=== PATIENT | female | born 2000 | race African-American/Black ===

== ENCOUNTER 2021-08-05 17:39 | Emergency (ER) | payer OTHER ==
[~2021-08-05] VITALS: Ht 170.2 cm; Wt 66.0 kg
[2021-08-05 18:38] VITALS: BP 103/63
[2021-08-05] MEDS ORDERED: ONDANSETRON 4MG ODT PO ONE (19:15)
[2021-08-05] MEDS ORDERED: MAGNESIUM/ALUMINUM HYDROXIDE/SIMETHICONE 30ML UDC PO ONE (19:15)
[2021-08-05] MEDS ORDERED: FAMO-135 PO (21:27)
== END 2021-08-05 21:40 | disposition home or self-care (01) ==
LOC: ER 17:39
DX: R11.2 Nausea with vomiting, unspecified (principal); R19.7 Diarrhea, unspecified; R10.13 Epigastric pain
CPT/HCPCS: 93005; 99283; Q0162

== ENCOUNTER 2021-08-22 10:48 | Emergency (ER) | payer OTHER ==
[~2021-08-22] VITALS: Ht 170.2 cm; Wt 73.0 kg
[~2021-08-22 10:48] MED LIST: FAMO-135 PO
[2021-08-22 11:07] VITALS: BP 108/50
[2021-08-22] MEDS ORDERED: KETOROLAC 60MG/2ML VIAL IM ONE (11:45)
[2021-08-22] MEDS ORDERED: NAPR-679 MT (13:52)
[2021-08-22] MEDS ORDERED: METH-773 MT (13:53)
== END 2021-08-22 14:48 | disposition home or self-care (01) ==
LOC: ER 10:48
DX: M54.50 Low back pain, unspecified (principal); M25.531 Pain in right wrist; W01.0XXA Fall on same level from slipping, tripping and stumbling without subsequent striking against object, initial encounter; Y93.89 Activity, other specified; Y92.218 Other school as the place of occurrence of the external cause; Y99.8 Other external cause status
CPT/HCPCS: 29125; 72131; 73100; 73120; 81025; 96372; 99284; J1885; A4565

== ENCOUNTER 2022-02-04 09:57 | Emergency (ER) | payer OTHER ==
[~2022-02-04] VITALS: Ht 170.2 cm; Wt 53.0 kg
[~2022-02-04 09:57] MED LIST changes: +METH-773 MT; +NAPR-679 MT
[2022-02-04 10:17] VITALS: BP 121/87
== END 2022-02-04 14:03 | disposition left against medical advice (07) ==
LOC: ER 09:57
DX: R00.2 Palpitations (principal)
CPT/HCPCS: 93005; 99283

== ENCOUNTER 2024-02-26 11:02 | Emergency (ER) | payer OTHER ==
[~2024-02-26] VITALS: Ht 167.6 cm; Wt 54.0 kg
[2024-02-26 11:15] VITALS: O2SAT 98
[2024-02-26] MEDS ORDERED: MAGNESIUM/ALUMINUM HYDROXIDE/SIMETHICONE 30ML UDC PO STA (11:24)
[2024-02-26] MEDS ORDERED: ONDANSETRON HCL 4MG/2ML INJ IV STA (11:24)
[2024-02-26 11:45] LABS: BASOPHILS % 0.5 % (0.0-2.0); EOSINOPHILS % 0.4 % (0.0-5.0); HEMATOCRIT. 40.5 % (36.0-48.0); HEMOGLOBIN. 13.4 g/dL (12.0-16.0); LYMPHOCYTES % 21.3 % (20.0-50.0); MEAN CORPUSCULAR HEMOGLOBIN 30.3 pg (28.0-32.0); MEAN CORPUSCULAR VOLUME 91.8 fL (81.0-99.0); MEAN PLATELET VOLUME 8.7 fl (7.4-10.4); MONOCYTES % 5.6 % (2.0-8.0); NEUTROPHILS % 72.2 % (40.0-76.0); PLATELET 200 x1000/uL (130-400); RED BLOOD CELL COUNT 4.41 mill/uL (4.2-5.4); RED CELL DISTRIBUTION WIDTH 14.4 % (11.6-14.6)
[2024-02-26 11:50] LABS: CHLORIDE 105 mEq/L (98-107); POTASSIUM 3.5 mEq/L (3.5-5.1); SODIUM 137 mEq/L (136-145)
[2024-02-26 11:51] LABS: CARBON DIOXIDE 23 mEq/L (21-32)
[2024-02-26 11:56] LABS: CREATININE 0.7 mg/dL (0.6-1.0); GLUCOSE 102 mg/dL (70-105); UREA NITROGEN BLOOD 8 mg/dL (9-23)
[2024-02-26 11:58] LABS: ALANINE AMINOTRANSFERASE 20 IU/L (10-49); ALBUMIN 4.4 g/dL (3.2-4.8); ASPARTATE AMINOTRANSFERASE 27 IU/L (<34); PROTEIN TOTAL 7.3 g/dL (6.0-8.3)
[2024-02-26 12:01] LABS: HCG SCREEN NEGATIVE
[2024-02-26 12:26] LABS: TROPONIN I HIGH SENSITIVITY < 4 ng/L (3.0-34)
[2024-02-26] MEDS ORDERED: FAMOTIDINE 20MG/2ML VIAL IV ONE (12:45)
[2024-02-26] MEDS ORDERED: HALOPERIDOL LACTATE 5MG/ML VIAL IM ONE (12:45)
[2024-02-26] MEDS ORDERED: CAPSAICIN 0.075% CREAM 60GM TOP PRN (12:45)
[2024-02-26] MEDS ORDERED: CAPSAICIN 0.025% CREAM 60GM TOP PRN (13:00)
[2024-02-26] MEDS: FAMOTIDINE 20MG/2ML VIAL IV NR (14:54)
[2024-02-26] MEDS: ONDANSETRON HCL 4MG/2ML INJ IV NR (14:55)
[2024-02-26] MEDS: MAGNESIUM/ALUMINUM HYDROXIDE/SIMETHICONE 30ML UDC PO NR (14:55)
[2024-02-26] MEDS: HALOPERIDOL LACTATE 5MG/ML VIAL IM NR (14:57)
[2024-02-26 16:02] VITALS: BP 127/74; PULSE 68; RESP 13; TEMP 98.3
[2024-02-27] MEDS ORDERED: ONDA4TAB11 PO (19:42)
[2024-02-27] MEDS ORDERED: CAPS42.514 TP (19:42)
== END 2024-02-26 16:24 | disposition home or self-care (01) ==
LOC: ER 11:02
DX: R11.2 Nausea with vomiting, unspecified (principal); R07.89 Other chest pain
CPT/HCPCS: 80053; 84703; 83690; 85025; 84484; 36415; 71045; 93005; 96372; 96374; 96375; 99285; J3490; J1630; J2405; Z7610 ×2

== ENCOUNTER 2024-02-27 17:50 | Emergency (ER) | payer OTHER ==
[~2024-02-27] VITALS: Ht 167.6 cm; Wt 52.0 kg
[2024-02-27 18:03] VITALS: O2SAT 100
[2024-02-27] MEDS: HALOPERIDOL LACTATE 5MG/ML VIAL IM ONE (18:47)
[2024-02-27] MEDS: KETOROLAC 60MG/2ML VIAL IM ONE (18:47)
[2024-02-27] MEDS: DIPHENHYDRAMINE 50MG/ML VIAL IM PRN (18:47)
[2024-02-27 19:10] VITALS: BP 119/81; PULSE 65; RESP 17; TEMP 98.7
[2024-02-27] MEDS ORDERED: ONDA4TAB11 PO (19:42)
[2024-02-27] MEDS ORDERED: CAPS42.514 TP (19:42)
== END 2024-02-27 19:58 | disposition home or self-care (01) ==
LOC: ER 17:50
DX: R10.9 Unspecified abdominal pain (principal); R11.2 Nausea with vomiting, unspecified
CPT/HCPCS: 96372; 99284; J1200; J1630; J1885; Z7610